=== PATIENT | female | born 1990 | race Caucasian/White ===

== ENCOUNTER 2022-03-20 16:16 | Emergency (ER) | payer SELFPAY ==
[~2022-03-20] VITALS: Ht 162.6 cm; Wt 68.9 kg
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
--- NOTE | 2022-03-20 16:40 | NUR ---
ESTABLISHED IVL INE RIGHT AC 20G , BLOOD SAMPLE AND URINE OBTAINED SENT TO LAB.
--- NOTE | 2022-03-20 16:40 | NUR ---
*LEFT AC 20G
--- NOTE | 2022-03-20 17:20 | NUR ---
CERVICAL COLLAR PLACED
[2022-03-20] MEDS ORDERED: ACETAMINOPHEN ES 500 MG TABLET ONE (17:27)
[2022-03-20] MEDS: ACETAMINOPHEN ES 500 MG TABLET PO ONE (17:29)
--- NOTE | 2022-03-20 17:35 | NUR ---
PT. SIGNED A WAIVER
--- NOTE | 2022-03-20 17:43 | NUR ---
Hal carrera in [facility] - 03/20/22 at 1802 by ANMOL PT TAKEN TO RADIOLOGY
--- NOTE | 2022-03-20 17:44 | NUR ---
PT TAKEN TO CT
[2022-03-20 18:40] VITALS: BP 120/88
--- NOTE | 2022-03-20 18:41 | NUR ---
IV removed. Catheter intact and site benign. Pressure and 4x4 applied to site. No bleeding noted.
--- NOTE | 2022-03-20 18:41 | NUR ---
Patient discharged to home in stable condition. Written and verbal after care instructions given. Patient verbalizes understanding of instruction.
== END 2022-03-20 18:42 | disposition home or self-care (01) ==
LOC: ER 16:27
DX: S00.03XA Contusion of scalp, initial encounter (principal); V89.2XXA Person injured in unspecified motor-vehicle accident, traffic, initial encounter; Y93.89 Activity, other specified; Y92.89 Other specified places as the place of occurrence of the external cause; Y99.8 Other external cause status
CPT/HCPCS: 99284; 72125; 70450; L0172